=== PATIENT | female | born 1995 | race Two or more races ===

== ENCOUNTER 2022-11-06 17:22 | Emergency (ER) | payer OTHER ==
[2022-11-06 17:40] VITALS: BP 108/71; PULSE 73; RESP 16; TEMP 98.7; BMI 31.8
[2022-11-06] MEDS ORDERED: ACETAMINOPHEN 500 MG TABLET (FP) PO ONE (17:56)
[2022-11-06] MEDS ORDERED: METHOCARBAMOL 500 MG TABLET PO ONE (17:56)
[2022-11-06] MEDS ORDERED: LIDOCAINE 5% TOPICAL PATCH TP ONE (17:56)
[2022-11-06] MEDS ORDERED: ACETAMINOPHEN 500 MG TABLET (FP) ONE (18:04)
[2022-11-06] MEDS ORDERED: METHOCARBAMOL 500 MG TABLET ONE (18:04)
[2022-11-06] MEDS ORDERED: LIDOCAINE 5% TOPICAL PATCH ONE (18:05)
[2022-11-06] MEDS ORDERED: LIDOCAINE PATCH REMOVAL MC SCH (22:00)
== END 2022-11-06 21:00 | disposition home or self-care (01) ==
LOC: FER 17:22
DX: M54.50 Low back pain, unspecified (principal); R51.9 Headache, unspecified; S30.810A Abrasion of lower back and pelvis, initial encounter; M54.2 Cervicalgia; V49.50XA Passenger injured in collision with unspecified motor vehicles in traffic accident, initial encounter; W22.8XXA Striking against or struck by other objects, initial encounter
CPT/HCPCS: 70450-TC; 72125-TC; 72128-TC; 72131-TC; 84703; 99284-25

== ENCOUNTER 2023-10-01 18:43 | Emergency (ER) | payer OTHER ==
[2023-10-01 19:02] VITALS: BP 100/64; PULSE 68; RESP 18; TEMP 98.5; BMI 30.9
[2023-10-01] MEDS ORDERED: ACETAMINOPHEN 500 MG TABLET (FP) ONE (20:25)
[2023-10-01] MEDS ORDERED: KETOROLAC TROMETHAMINE 30 MG/1 ML VIAL ONE (20:25)
[2023-10-01] MEDS: KETOROLAC TROMETHAMINE 30 MG/1 ML VIAL IM ONE (20:31)
[2023-10-01] MEDS: ACETAMINOPHEN 500 MG TABLET (FP) PO ONE (20:33)
== END 2023-10-01 21:15 | disposition home or self-care (01) ==
LOC: JER 18:43 → JERFT 18:43
PROC: 3E023GC Introduction of Other Therapeutic Substance into Muscle, Percutaneous Approach (ICD-10-PCS; principal; 2023-10-01)
DX: S09.90XA Unspecified injury of head, initial encounter (principal); S39.92XA Unspecified injury of lower back, initial encounter; V89.2XXA Person injured in unspecified motor-vehicle accident, traffic, initial encounter
CPT/HCPCS: 71046-TC-FY; 99284-25